=== PATIENT | female | born 1980 | race Two or more races ===

== ENCOUNTER 2023-03-06 04:20 | Inpatient (IN) | payer MEDICAID, OTHER ==
[~2023-03-06] VITALS: Ht 152.4 cm; Wt 63.0 kg
[2023-03-06] MEDS ORDERED: MORPHINE SULFATE 4 MG/ML SYR/VIAL IV ONE (04:45)
[2023-03-06] MEDS ORDERED: ONDANSETRON HCL 4 MG/2 ML VIAL IV ONE (04:45)
[2023-03-06 05:27] LABS: INR 1.05 (0.9-1.15); Partial Thromboplastin Time 25.1 sec (24.6-33.4)
[2023-03-06 05:30] LABS: Basophils # (auto) 0 10 ^3/uL (0-0.2); Basophils % (auto) 0.3 % (0.0-2.0); Eosinophils # (auto) 0 10 ^3/uL (0-0.8); Eosinophils % (auto) 0.4 % (0.0-7.0); Hematocrit 36.3 % (36.0-46.0); Hemoglobin 12.4 g/dL (12.2-16.2); Lymphocytes # (auto) 4.2 10 ^3/uL (0.4-5.4); Lymphocytes % (auto) 39.6 % (10.0-50.0); Mean Corpuscular Hemoglobin 33.6 pg (28.0-32.0); Mean Corpuscular Hgb Conc. 34.2 g/dL (32.0-36.0); Mean Corpuscular Volume 98.3 fL (80.0-100.0); Monocytes % (auto) 9.2 % (0.0-12.0); Neutrophils # (auto) 5.4 10 ^3/uL (1.6-8.6); Neutrophils % (auto) 50.5 % (37.0-80.0); Nucleated Red Blood Cells % 0.1 %; Red Cell Distribution Width 13.3 % (11.8-14.3); White Blood Cell 10.6 10^3/uL (4.4-10.8)
[2023-03-06 05:34] LABS: Potassium 3.1 mmol/L (3.5-5.1)
[2023-03-06 05:41] LABS: Albumin 3.7 g/dL (3.4-5.0); BUN/Creatinine Ratio 24.6 (10.0-20.0); Bilirubin, Total 0.4 mg/dL (0.2-1.0); Calcium 8.2 mg/dL (8.5-10.1)
[2023-03-06] MEDS ORDERED: POTASSIUM CHL 20 Meq TABLET PO ONE (07:30)
[2023-03-06] MEDS ORDERED: ACETAMINOPHEN 325 MG TAB PO PRN (10:15)
[2023-03-06] MEDS: HYDROcodone-ACET 5/325MG TAB PO PRN (10:41)
[2023-03-06 11:17] LABS: Cholesterol 172 mg/dL (< 200); Triglycerides 71 mg/dL (< 150)
[2023-03-06 11:20] LABS: HDL Cholesterol 54 mg/dL (40-59); LDL Cholesterol 112 mg/dL (< 100)
[2023-03-06] MEDS: MORPHINE SULFATE INJ 2 MG/ml SYRG IV PRN (18:45)
[2023-03-06 19:00] VITALS: BP 107/62
[2023-03-06 20:00] VITALS: BP 107/62
[2023-03-06 22:00] VITALS: BP 107/62
[2023-03-07 04:37] LABS: Urine Bacteria NONE SEEN /hpf (None Seen); Urine Blood Negative /uL (Negative); Urine Mucus FEW (None Seen); Urine Specific Gravity 1.024 (1.001-1.035); Urine WBC 12 /hpf (0 - 5)
[2023-03-07 04:46] LABS: Alcohol, Urine < 3.0 mg/dL (0-10); Amphetamine Screen, Urine NEGATIVE (NEGATIVE); Barbiturate Scree,Urine NEGATIVE (NEGATIVE); Benzodiazephine Screen, Urine NEGATIVE (NEGATIVE); Cannabinoid Screen, Urine NEGATIVE (NEGATIVE); Cocaine Screen, Urine NEGATIVE (NEGATIVE)
[2023-03-07 04:55] LABS: Opiate Scree,Urine POSITIVE (NEGATIVE); Phencyclidine Screen, Urine NEGATIVE (NEGATIVE)
[2023-03-07 05:00] VITALS: BP 112/65
[2023-03-07] MEDS: MORPHINE SULFATE INJ 2 MG/ml SYRG IV PRN ×3 (05:01→20:58)
[2023-03-07 05:53] LABS: Basophils # (auto) 0 10 ^3/uL (0-0.2); Basophils % (auto) 0.2 % (0.0-2.0); Eosinophils # (auto) 0.1 10 ^3/uL (0-0.8); Eosinophils % (auto) 1.6 % (0.0-7.0); Hematocrit 37.3 % (36.0-46.0); Hemoglobin 12.7 g/dL (12.2-16.2); Lymphocytes # (auto) 3.4 10 ^3/uL (0.4-5.4); Lymphocytes % (auto) 48.5 % (10.0-50.0); Mean Corpuscular Hemoglobin 33.4 pg (28.0-32.0); Mean Corpuscular Hgb Conc. 33.9 g/dL (32.0-36.0); Mean Corpuscular Volume 98.5 fL (80.0-100.0); Monocytes # (auto) 0.5 10 ^3/uL (0-1.3); Monocytes % (auto) 7.1 % (0.0-12.0); Neutrophils % (auto) 42.6 % (37.0-80.0); Nucleated Red Blood Cells % 0.2 %; Red Blood Cells 3.79 10^6/uL (4.0-5.20); Red Cell Distribution Width 13.7 % (11.8-14.3); White Blood Cell 7.1 10^3/uL (4.4-10.8)
[2023-03-07 06:13] LABS: Potassium 3.6 mmol/L (3.5-5.1)
[2023-03-07 06:19] LABS: Albumin 3.2 g/dL (3.4-5.0); Bilirubin, Total 0.5 mg/dL (0.2-1.0); Total Protein 6.6 g/dL (6.4-8.2)
[2023-03-07 08:55] VITALS: BP 106/65
[2023-03-07] MEDS: HYDROcodone-ACET 5/325MG TAB PO PRN (10:48)
[2023-03-07] MEDS ORDERED: HYDROcodone-ACET 10/325MG TAB PO PRN (12:30)
[2023-03-07 12:51] LABS: Hepatitis C Antibody Negative (Negative)
[2023-03-07 13:00] VITALS: BP 118/68
[2023-03-07 17:00] VITALS: BP 100/67
[2023-03-07 22:00] VITALS: BP 132/81
[2023-03-08] MEDS: MORPHINE SULFATE INJ 2 MG/ml SYRG IV PRN ×2 (04:56→14:30)
[2023-03-08 05:00] VITALS: BP 110/65
[2023-03-08 08:48] VITALS: BP 101/59
[2023-03-08 12:51] VITALS: BP 109/59
[2023-03-08 17:02] VITALS: BP 113/62
[2023-03-08 20:00] VITALS: BP 115/70
[2023-03-08] MEDS: OXYCODONE W/ ACETAMINOPHEN 5/325MG TABLET PO PRN (20:04)
[2023-03-08 22:00] VITALS: BP 115/70
[2023-03-08] MEDS: DOCUSATE SOD 100 MG CAP PO SCH (22:49)
[2023-03-09] VITALS (8 sets, daily range): BP systolic 93–123; BP diastolic 48–79
[2023-03-09] MEDS: OXYCODONE W/ ACETAMINOPHEN 5/325MG TABLET PO PRN ×3 (04:30→19:56)
[2023-03-09] MEDS: DOCUSATE SOD 100 MG CAP PO SCH ×2 (10:23→22:40)
[2023-03-09] MEDS ORDERED: PERCOT PO (11:59)
[2023-03-09] MEDS: MORPHINE SULFATE INJ 2 MG/ml SYRG IV PRN (14:20)
[2023-03-10] MEDS: OXYCODONE W/ ACETAMINOPHEN 5/325MG TABLET PO PRN ×4 (03:38→22:45)
[2023-03-10 05:00] VITALS: BP 116/71
[2023-03-10 08:00] VITALS: BP_SYST 104; BP_SYST 109; BP_DIAS 63
[2023-03-10] MEDS: CELECOXIB 100 MG CAP PO SCH ×2 (09:39→21:22)
[2023-03-10] MEDS: DOCUSATE SOD 100 MG CAP PO SCH ×2 (09:49→21:22)
[2023-03-10 12:00] VITALS: BP 115/70
[2023-03-10] MEDS: LACTULOSE 20Gm/30ML SOLN PO PRN (15:18)
[2023-03-10 15:57] VITALS: BP 108/68
[2023-03-10 22:00] VITALS: BP 107/64
[2023-03-11] MEDS: LACTULOSE 20Gm/30ML SOLN PO PRN (03:46)
[2023-03-11 05:00] VITALS: BP 106/74
[2023-03-11] MEDS: OXYCODONE W/ ACETAMINOPHEN 5/325MG TABLET PO PRN ×3 (06:34→20:50)
[2023-03-11 09:00] VITALS: BP 108/70
[2023-03-11] MEDS: CELECOXIB 100 MG CAP PO SCH ×2 (10:43→21:12)
[2023-03-11] MEDS: DOCUSATE SOD 100 MG CAP PO SCH ×2 (10:43→21:13)
[2023-03-11 13:00] VITALS: BP 104/68
[2023-03-11] MEDS ORDERED: METOCLOPRAMIDE HCL 5MG/ml INJ 2ml VIAL IV ONE (14:00)
[2023-03-11] MEDS ORDERED: POLYETHYLENE GLYCOL 17 GM PWDR PO ONE (14:00)
[2023-03-11 17:00] VITALS: BP 93/60
[2023-03-12 05:00] VITALS: BP 107/65
[2023-03-12] MEDS: OXYCODONE W/ ACETAMINOPHEN 5/325MG TABLET PO PRN ×3 (06:01→23:25)
[2023-03-12] MEDS: LACTULOSE 20Gm/30ML SOLN PO PRN (06:01)
[2023-03-12 08:00] VITALS: BP_SYST 100; BP_SYST 94; BP_DIAS 57; BP_DIAS 60
[2023-03-12] MEDS: CELECOXIB 100 MG CAP PO SCH ×2 (08:25→21:16)
[2023-03-12] MEDS: DOCUSATE SOD 100 MG CAP PO SCH ×2 (08:25→21:16)
[2023-03-12 09:50] VITALS: BP 94/60
[2023-03-12 13:00] VITALS: BP 100/57
[2023-03-12 16:31] VITALS: BP 104/50
[2023-03-12 22:00] VITALS: BP 102/48
[2023-03-13] MEDS: LACTULOSE 20Gm/30ML SOLN PO PRN ×2 (02:03→06:21)
[2023-03-13 05:00] VITALS: BP 94/54
[2023-03-13 08:00] VITALS: BP 117/69
[2023-03-13 09:00] VITALS: BP 107/60
[2023-03-13] MEDS: DOCUSATE SOD 100 MG CAP PO SCH ×2 (10:00→22:00)
[2023-03-13] MEDS: CELECOXIB 100 MG CAP PO SCH ×2 (10:47→22:00)
[2023-03-13] MEDS ORDERED: LACTULOSE 20Gm/30ML SOLN PO SCH (11:00)
[2023-03-13 13:00] VITALS: BP 117/69
[2023-03-13] MEDS: OXYCODONE W/ ACETAMINOPHEN 5/325MG TABLET PO PRN (13:11)
[2023-03-13 17:00] VITALS: BP 96/57
[2023-03-13 22:00] VITALS: BP 94/52
[2023-03-14] MEDS: OXYCODONE W/ ACETAMINOPHEN 5/325MG TABLET PO PRN ×2 (01:24→14:20)
[2023-03-14 05:00] VITALS: BP 92/50
[2023-03-14 09:00] VITALS: BP 86/84
[2023-03-14] MEDS: CELECOXIB 100 MG CAP PO SCH (09:23)
[2023-03-14] MEDS: DOCUSATE SOD 100 MG CAP PO SCH (09:23)
[2023-03-14 13:00] VITALS: BP 97/48
[2023-03-14] MEDS ORDERED: DOCU-94 PO (13:48)
[2023-03-14] MEDS ORDERED: CEL100T PO (13:48)
[2023-03-14 17:23] VITALS: BP 90/42
== END 2023-03-14 20:32 | disposition home or self-care (01) | DRG 351 ==
LOC: ER 04:20 → EDBD 04:20 → OVERFLOW 10:10 → WEST WING 17:37
PROVIDERS: ADMIT Registered Nurse; ATTEND Nurse Practitioner Acute Care
DX: M16.11 Unilateral primary osteoarthritis, right hip (principal); E87.6 Hypokalemia; G89.29 Other chronic pain; K59.00 Constipation, unspecified; M25.561 Pain in right knee; M54.9 Dorsalgia, unspecified; W18.2XXA Fall in (into) shower or empty bathtub, initial encounter; Z82.49 Family history of ischemic heart disease and other diseases of the circulatory system; Z83.3 Family history of diabetes mellitus; Z91.81 History of falling; Y93.89 Activity, other specified; Y92.89 Other specified places as the place of occurrence of the external cause; Y99.8 Other external cause status
CPT/HCPCS: 36415; 73502; 73562; 74176; 80053; 80061; 80307; 81001; 83036; 84702; 85025; 85610; 85730; 86803; 87340; 96374; 96375; 97110; 97116; 97163; 97530; G0378; J2405